=== PATIENT | female | born 1955 | race African-American/Black ===

== ENCOUNTER → 2018-12-19 | Outpatient (CLI) | payer OTHER | LOC: RAD 10:58 | DX: Z12.31 Encounter for screening mammogram for malignant neoplasm of breast (principal) ==

== ENCOUNTER → 2018-12-27 | Outpatient (CLI) | payer OTHER | LOC: ULTRA 10:52 → RAD 10:52 | DX: N60.01 Solitary cyst of right breast (principal) ==

== ENCOUNTER → 2020-12-08 | Outpatient (CLI) | payer OTHER | LOC: BC 10:53 | PROVIDERS: ATTEND Family Medicine | DX: Z12.31 Encounter for screening mammogram for malignant neoplasm of breast (principal); N64.89 Other specified disorders of breast ==